=== PATIENT | male | born 1965 | race African-American/Black ===

== ENCOUNTER 2018-11-10 17:19 | Inpatient (IN) | payer MEDICAID, MEDICARE ==
[~2018-11-10] VITALS: Ht 172.7 cm; Wt 69.4 kg
[~2018-11-10 17:19] MED LIST: ATENOLOL; DEPAKOTE; SEROQUEL
[2018-11-10] MEDS ORDERED: SODIUM CHLORIDE 0.9% 1,000 ML IV ONE (17:47)
[2018-11-10] MEDS ORDERED: LEVETIRACETAM 1000MG/100ML 100 ML IV ONE (18:15)
[2018-11-10] MEDS ORDERED: ONDANSETRON HCL 4MG/2ML INJ IV ONE ×2 (18:45→20:15)
[2018-11-10] MEDS ORDERED: LORAZEPAM 2MG/ML CPJ ONE (19:11)
[2018-11-10] MEDS ORDERED: LORAZEPAM 2MG/ML CPJ IV ONE (19:15)
[2018-11-10 19:17] LABS: BASOPHILS % 0.4 % (0.0-2.0); HEMATOCRIT. 42.3 % (42.0-52.0); HEMOGLOBIN. 13.8 g/dL (14.0-18.0); LYMPHOCYTES % 8.7 % (20.0-50.0); MEAN CORPUSCULAR HEMOGLOBIN 28.9 pg (28.0-32.0); MEAN CORPUSCULAR VOLUME 88.4 fL (80.0-94.0); MEAN PLATELET VOLUME 8.6 fl (7.4-10.4); MONOCYTES % 6.6 % (2.0-8.0); NEUTROPHILS % 84.3 % (40.0-76.0); PLATELET 131 x1000/uL (130-400); RED BLOOD CELL COUNT 4.78 mill/uL (4.7-6.1)
[2018-11-10 19:19] LABS: CHLORIDE 96 mEq/L (98-107)
[2018-11-10 19:20] LABS: PARTIAL THROMBOPLASTIN TIME 24.5 sec (23.4-31.0); PROTHROMBIN TIME 10.7 sec (9.6-11.0)
[2018-11-10 19:25] LABS: ETHANOL BLOOD 197 mg/dL
[2018-11-10] MEDS ORDERED: DOCUSATE SODIUM 100MG CAPSULE PO PRN (20:45)
[2018-11-10] MEDS ORDERED: ONDANSETRON HCL 4MG/2ML INJ IV PRN (20:45)
[2018-11-11] VITALS (22 sets, daily range): BP systolic 99–159; BP diastolic 38–103
[2018-11-11] MEDS: DEXT 5%/0.45% NACL 1000ML 1,000 ML IV SCH ×2 (03:00→14:35)
[2018-11-11] MEDS: LORAZEPAM 2MG/ML CPJ IV PRN ×2 (05:01→11:48)
[2018-11-11 06:59] LABS: BASOPHILS % 0.5 % (0.0-2.0); EOSINOPHILS % 0.2 % (0.0-5.0); HEMATOCRIT. 36.7 % (42.0-52.0); HEMOGLOBIN. 12.2 g/dL (14.0-18.0); LYMPHOCYTES % 15.8 % (20.0-50.0); MEAN CORPUSCULAR HEMOGLOBIN 29.4 pg (28.0-32.0); MEAN CORPUSCULAR VOLUME 88.5 fL (80.0-94.0); MEAN PLATELET VOLUME 9.2 fl (7.4-10.4); MONOCYTES % 11.7 % (2.0-8.0); NEUTROPHILS % 71.8 % (40.0-76.0); PLATELET 110 x1000/uL (130-400); RED BLOOD CELL COUNT 4.15 mill/uL (4.7-6.1); RED CELL DISTRIBUTION WIDTH 15.8 % (11.6-14.6)
[2018-11-11 07:21] LABS: CHLORIDE 99 mEq/L (98-107)
[2018-11-11] MEDS ORDERED: PNEUMOCOCCAL 23-VAL P-SAC VAC 0.5 ML IM ONE (08:30)
[2018-11-11] MEDS: PANTOPRAZOLE SODIUM 40 MG/VIAL IV SCH (09:28)
[2018-11-11] MEDS: METOPROLOL TARTRATE 25MG TABLET PO SCH ×2 (09:28→21:03)
[2018-11-11] MEDS: FOLIC ACID 1MG TABLET PO SCH (11:46)
[2018-11-11] MEDS: THIAMINE HCL 100MG TABLET PO SCH (11:46)
[2018-11-11] MEDS: CHLORDIAZEPOXIDE 25MG CAPSULE PO SCH ×2 (14:35→21:03)
[2018-11-11] MEDS: CLONIDINE 0.1MG TABLET PO PRN (14:49)
[2018-11-11] MEDS: QUETIAPINE FUMARATE 100MG TABLET PO SCH (21:03)
[2018-11-12] VITALS (14 sets, daily range): BP systolic 92–145; BP diastolic 61–88
[2018-11-12] MEDS: DEXT 5%/0.45% NACL 1000ML 1,000 ML IV SCH ×2 (01:05→09:24)
[2018-11-12] MEDS: CHLORDIAZEPOXIDE 25MG CAPSULE PO SCH ×3 (05:56→21:45)
[2018-11-12] MEDS: PANTOPRAZOLE SODIUM 40 MG/VIAL IV SCH (09:22)
[2018-11-12] MEDS: METOPROLOL TARTRATE 25MG TABLET PO SCH ×2 (09:23→20:21)
[2018-11-12] MEDS: THIAMINE HCL 100MG TABLET PO SCH (09:23)
[2018-11-12] MEDS: FOLIC ACID 1MG TABLET PO SCH (09:23)
[2018-11-12] MEDS: CLONIDINE 0.1MG TABLET PO PRN (18:28)
[2018-11-12] MEDS: QUETIAPINE FUMARATE 100MG TABLET PO SCH (20:21)
[2018-11-13 00:35] VITALS: BP 132/94
[2018-11-13 04:00] VITALS: BP 121/89
[2018-11-13] MEDS: CHLORDIAZEPOXIDE 25MG CAPSULE PO SCH ×2 (05:11→13:15)
[2018-11-13 06:07] LABS: BASOPHILS % 0.3 % (0.0-2.0); EOSINOPHILS % 1.4 % (0.0-5.0); HEMATOCRIT. 33.6 % (42.0-52.0); HEMOGLOBIN. 11.1 g/dL (14.0-18.0); LYMPHOCYTES % 18.8 % (20.0-50.0); MEAN CORPUSCULAR HEMOGLOBIN 29.1 pg (28.0-32.0); MEAN CORPUSCULAR VOLUME 88.7 fL (80.0-94.0); MEAN PLATELET VOLUME 8.9 fl (7.4-10.4); MONOCYTES % 9.1 % (2.0-8.0); NEUTROPHILS % 70.4 % (40.0-76.0); PLATELET 108 x1000/uL (130-400); RED BLOOD CELL COUNT 3.79 mill/uL (4.7-6.1); RED CELL DISTRIBUTION WIDTH 15.8 % (11.6-14.6)
[2018-11-13 06:31] LABS: CHLORIDE 105 mEq/L (98-107)
[2018-11-13 08:00] VITALS: BP 130/100
[2018-11-13] MEDS: FOLIC ACID 1MG TABLET PO SCH (08:31)
[2018-11-13] MEDS: THIAMINE HCL 100MG TABLET PO SCH (08:31)
[2018-11-13] MEDS: PANTOPRAZOLE SODIUM 40 MG/VIAL IV SCH (08:31)
[2018-11-13] MEDS: METOPROLOL TARTRATE 25MG TABLET PO SCH (08:32)
[2018-11-13 11:54] VITALS: BP 123/92
[2018-11-13] MEDS ORDERED: MAGNESIUM OXIDE 400MG TABLET PO SCH (12:00)
[2018-11-13 12:58] VITALS: BP 123/92
== END 2018-11-13 15:45 | disposition home or self-care (01) | DRG 101 ==
LOC: ER 17:19 → 5EST 19:42 → EDBEDREQ 19:55 → EDBEDREQSVC 19:55 → EDBEDREQTM 19:55 → SUPCPDRO 20:36 → ENRESERV 11-11 00:05 → 6EST 11-12 16:00
PROVIDERS: ADMIT Hospitalist; ATTEND Hospitalist
DX: G40.909 Epilepsy, unspecified, not intractable, without status epilepticus (principal); F10.239 Alcohol dependence with withdrawal, unspecified; E87.1 Hypo-osmolality and hyponatremia; F31.9 Bipolar disorder, unspecified; Y90.6 Blood alcohol level of 120-199 mg/100 ml; R74.0 Nonspecific elevation of levels of transaminase and lactic acid dehydrogenase [LDH]; F10.229 Alcohol dependence with intoxication, unspecified; I10 Essential (primary) hypertension; Z88.8 Allergy status to other drugs, medicaments and biological substances
CPT/HCPCS: 36415; 71045; 80320; 82962; 83735; 83880; 84484; 90732; 93005; 96365; 96375; 97162; 97530; 99291; C9113; J1953; J2060; J2405; J7030; G0480

== ENCOUNTER 2019-07-15 09:15 | Emergency (ER) | payer MEDICARE ==
[~2019-07-15] VITALS: Ht 172.7 cm; Wt 73.0 kg
[2019-07-15 09:16] VITALS: BP 118/83
[2019-07-15] MEDS ORDERED: OXYCODONE HCL/ACETAMINOPHEN 5/325MG TABLET PO ONE (09:45)
== END 2019-07-15 10:36 | disposition home or self-care (01) ==
LOC: ER 09:39
DX: M79.604 Pain in right leg (principal); F32.9 Major depressive disorder, single episode, unspecified; I10 Essential (primary) hypertension; R56.9 Unspecified convulsions; V47.5XXA Car driver injured in collision with fixed or stationary object in traffic accident, initial encounter; Y93.89 Activity, other specified; Y92.410 Unspecified street and highway as the place of occurrence of the external cause; Z88.8 Allergy status to other drugs, medicaments and biological substances
CPT/HCPCS: 73590; 99283

== ENCOUNTER 2019-07-20 06:26 | Emergency (ER) | payer MEDICARE ==
[~2019-07-20] VITALS: Ht 175.3 cm; Wt 73.0 kg
[2019-07-20 07:24] LABS: CHLORIDE 105 mEq/L (98-107)
[2019-07-20 07:27] LABS: ETHANOL BLOOD 249 mg/dL
[2019-07-20 07:35] LABS: BASOPHILS % 0.3 % (0.0-2.0); EOSINOPHILS % 0.8 % (0.0-5.0); HEMATOCRIT. 41.9 % (42.0-52.0); MEAN CORPUSCULAR VOLUME 89.8 fL (80.0-94.0); MEAN PLATELET VOLUME 8.1 fl (7.4-10.4); MONOCYTES % 7.6 % (2.0-8.0); NEUTROPHILS % 71.3 % (40.0-76.0); PLATELET 120 x1000/uL (130-400); RED BLOOD CELL COUNT 4.67 mill/uL (4.7-6.1); RED CELL DISTRIBUTION WIDTH 14.4 % (11.6-14.6)
[2019-07-20 12:15] LABS: CLARITY URINE CLEAR (CLEAR); COLOR URINE DK YELLOW (YELLOW); KETONES URINE TRACE (NEGATIVE); LEUKOCYTE ESTERASE URINE NEGATIVE (NEGATIVE); NITRITE URINE NEGATIVE (NEGATIVE); OCCULT BLOOD URINE NEGATIVE (NEGATIVE); PROTEIN URINE TRACE (NEGATIVE); SPECIFIC GRAVITY URINE 1.018 (1.005-1.030)
[2019-07-20 12:35] LABS: *AMPHETAMINES SCREEN URINE NEGATIVE (NEGATIVE); *BARBITURATES SCREEN URINE NEGATIVE (NEGATIVE)
[2019-07-20 12:36] LABS: *BENZODIAZEPINES SCREEN URINE NEGATIVE (NEGATIVE); *COCAINE SCREEN URINE NEGATIVE (NEGATIVE); CANNABINOID URINE SCREEN PRESUMTIVE POSITIVE (NEGATIVE); METHADONE URINE SCREEN NEGATIVE (NEGATIVE); OPIATES URINE SCREEN NEGATIVE (NEGATIVE); PHENCYCLIDINE URINE SCREEN NEGATIVE (NEGATIVE)
[2019-07-20] MEDS ORDERED: ONDANSETRON HCL 4MG TABLET PO ONE (14:30)
[2019-07-20] MEDS ORDERED: CLONIDINE 0.1MG TABLET PO ONE (18:00)
[2019-07-20] MEDS ORDERED: LORAZEPAM 2MG/ML CPJ IM ONE (18:45)
[2019-07-20] MEDS ORDERED: ATENOLOL 25MG TABLET PO ONE (19:15)
[2019-07-20] MEDS ORDERED: CHLORDIAZEPOXIDE 25MG CAPSULE PO SCH (19:42)
[2019-07-20 20:07] VITALS: BP 152/110
== END 2019-07-20 20:56 ==
LOC: ER 06:26
DX: R45.851 Suicidal ideations (principal); I10 Essential (primary) hypertension; F12.10 Cannabis abuse, uncomplicated; Y90.8 Blood alcohol level of 240 mg/100 ml or more; Z59.0 Homelessness; Z88.8 Allergy status to other drugs, medicaments and biological substances
CPT/HCPCS: 36415; 80053; 80305; 80320; 81003; 85025; 96372; 99285; J2060; Q0162; G0480